=== PATIENT | male | born 1970 | race Caucasian/White ===

== ENCOUNTER 2019-05-29 11:25 | Day surgery (SDC) | payer OTHER ==
[~2019-05-29] VITALS: Ht 185.4 cm; Wt 104.0 kg
[~2019-05-29 11:25] MED LIST: ALLE180T33 PO; NS 1,000 ML IV ONE; PROPOFOL 200 MG/20 ML VIAL As Ordered ONE
--- NOTE | 2019-05-29 13:14 | ROOR ---
Patient Name: Donald Hidalgo Procedure Date: 05/29/2019 12:26 PM Date of : 1970 Age: 48 Room: [facility] Gender: Male Note Status: Finalized Procedure: Total Colonoscopy to Cecum + Cold Snare Polypectomy Indications: Rectal bleeding Providers: Francisco J Florez MD Referring MD: ROSALIO ZAPIEN MD Requesting Provider: Medicines: Monitored Anesthesia Care Complications: No immediate complications. Procedure: Pre-Anesthesia Assessment: - The heart rate, respiratory rate, oxygen saturations, blood pressure, adequacy of pulmonary ventilation, and response to care were monitored throughout the procedure. The Colonoscope was introduced through the anus and advanced to the cecum, identified by appendiceal orifice and ileocecal valve. The colonoscopy was performed without difficulty. The patient tolerated the procedure well. The quality of the bowel preparation was excellent. Findings: The perianal and digital rectal examinations were normal. Non-bleeding internal hemorrhoids were found during retroflexion. The hemorrhoids were medium-sized and Grade I (internal hemorrhoids that do not prolapse). A small polyp was found at 30 cm proximal to the anus. The polyp was sessile. The polyp was removed with a cold snare. Resection and retrieval were complete. The exam was otherwise without abnormality on direct and retroflexion views. Impression: - Non-bleeding internal hemorrhoids. - One small polyp at 30 cm proximal to the anus, removed with a cold snare. Resected and retrieved. - The examination was otherwise normal on direct and retroflexion views. - The exam was otherwise normal to the cecum. Recommendation: - Patient has a contact number available for emergencies. The signs and symptoms of potential delayed complications were discussed with the patient. Return to normal activities tomorrow. Written discharge instructions were provided to the patient. - High fiber diet. - Discharge patient to home. - Continue present medications. - Repeat colonoscopy for surveillance based on pathology results. - Return to referring physician. - Preparation H cream: Apply externally as necessary. Francisco J Florez MD Francisco J Florez MD 05/29/2019 1:14:07 PM Electronically signed by Francisco J Florez MD Number of Addenda: 0 Note Initiated On: 05/29/2019 12:26 PM Estimated Blood Loss: Estimated blood loss: none.
[2019-05-29 13:21] VITALS: BP 121/80
== END 2019-05-29 14:10 | disposition home or self-care (01) ==
LOC: M OPP 11:25
PROVIDERS: ATTEND Internal Medicine Gastroenterology
DX: K62.5 Hemorrhage of anus and rectum (principal); D12.6 Benign neoplasm of colon, unspecified; K64.0 First degree hemorrhoids